=== PATIENT | male | born 1955 | race Hispanic/Latino ===

== ENCOUNTER 2016-10-27 05:58 | Emergency (ER) | payer MEDICAID ==
[2016-10-27 06:19] VITALS: BMI 21.5
[2016-10-27 06:27] VITALS: BP 142/90; PULSE 68; RESP 18; TEMP 98.4; O2SAT 95
--- NOTE | 2016-10-27 06:57 | ED PDOC ---
Arrival/HPI - General Chief Complaint: ENT Problem Time Seen by Provider: 10/27/16 06:45 - History of Present Illness Narrative History of Present Illness (Text): 61M c/o itchy lesion on his nose for the last 2 weeks (not 2 months contrary to triage). he says it has not changed much since onset. he denies f/c, nausea, vomiting. he denies any pmh, meds, or allergies. Past Medical History - Past History Past History: Non-Contributing - Infectious Disease Hx of Infectious Diseases: None - Tetanus Immunization Tetanus Immunization: Unknown - Past Medical History Past Medical History: No Previous - Cardiac Hx Cardiac Disorders: Yes - Psychiatric Hx Depression: No Hx Emotional Abuse: No Hx Physical Abuse: No Hx Substance Use: No - Surgical History Hx Coronary Stent: Yes - Suicidal Assessment Feels Threatened In Home Enviroment: No Family/Social History Family/Social History: Other (nc) Smoking Status: Heavy Smoker > 10 Cigarettes Daily Hx Alcohol Use: No Hx Substance Use: No Hx Substance Use Treatment: No Allergies/Home Meds Allergies/Adverse Reactions: Allergies No Known Allergies Allergy (Verified 10/27/16 06:17) Review of Systems - Review of Systems Constitutional: absent: Fatigue, Fevers, Night Sweats Respiratory: absent: SOB, Cough Cardiovascular: absent: Chest Pain Gastrointestinal: absent: Nausea, Vomiting Physical Exam Vital Signs Reviewed: Yes Vital Signs Temp Pulse Resp BP Pulse Ox 10/27/16 06:27 98.4 F 68 18 142/90 95 Pain Distress: None Mental Status: Positive for: Alert and Oriented X 3 - Systems Exam Head: Present: Atraumatic Pupils: Present: PERRL Conjunctiva: Present: Normal Mouth: Present: Moist Mucous Membranes Nose (External): Present: Lesions (2cm lesion on the apex of the nose w honey colored crust) Nose (Internal): Present: No Active Bleeding. No: Edematous, Purulent Mucous, Septal Deviation, Epistaxis Respiratory/Chest: No: Accessory Muscle Use Neurological: Present: GCS=15 Skin: Present: Warm, Dry Psychiatric: Present: Alert, Oriented x 3 Disposition/Present on Arrival - Present on Arrival Any Indicators Present on Arrival: No History of DVT/PE: No History of Uncontrolled Diabetes: No Urinary Catheter: No History of Decub. Ulcer: No History Surgical Site Infection Following: None - Disposition Have Diagnosis and Disposition been Completed?: Yes Diagnosis: Infection of nose Disposition: HOME/ ROUTINE Disposition Time: 07:00 Condition: GOOD Additional Instructions: Please follow up with a primary doctor next week. Return to the ER for any worsening symptoms, if your symptoms are not improved in 3 days, or for any other concerns. Prescriptions: Sulfamethoxazole/Trimethoprim [Bactrim DS 800 mg-160 mg] 1 tab PO BID #20 tab Mupirocin 2% Ointment [Bactroban Ointment] 1 appl TP TID #1 tube Cephalexin [cephalexin] 500 mg PO QID #40 cap Referrals: [facility] [place] - Follow up with primary
== END 2016-10-27 07:02 | disposition home or self-care (01) ==
LOC: ED 05:58
DX: L08.9 Local infection of the skin and subcutaneous tissue, unspecified (principal)